=== PATIENT | male | born 1955 | race Caucasian/White ===

== ENCOUNTER 2024-02-01 06:26 | Observation (INO) ==
--- NOTE | 2023-12-27 12:53 | PAT Medication Instructions ---
Medication Instructions Date of Service December 27, 2023 Home Medications Medication Instructions Recorded hydrocodone 5 mg-acetaminophen 325 1 tab PO Q6H PRN pain #14 tabs //22 mg tablet allopurinol 100 mg tablet 100 mg PO QAM atenolol 50 mg tablet 50 mg PO QAM atorvastatin 10 mg tablet 20 mg PO HS hydrochlorothiazide 25 mg tablet 25 mg PO QAM hydrocodone 5 mg-acetaminophen 325 mg tablet 1 tab PO Q6H PRN pain lisinopril 20 mg tablet 20 mg PO QAM omeprazole 40 mg capsule,delayed release 40 mg PO BID oxybutynin chloride 5 mg tablet,extended release 24 hr 5 mg PO QAM oxycodone 5 mg tablet 5 mg PO Q6H PRN Pain, Severe oxycodone-acetaminophen 5 mg-325 mg tablet 1 tab PO Q4H PRN Pain, Severe tamsulosin 0.4 mg capsule 0.4 mg PO QPM coenzyme Q10 200 mg/gram oral powder (H2Q CoQ10) 200 mg PO QAM glucosamine sulfate 2KCl 1,000 mg tablet (Glucosamine Relief) 1,000 mg PO QAM mecobalamin (vitamin B12) 1,000 mcg chewable tablet 1,000 mcg PO QAM multivitamin 1 tab PO QAM potassium citrate 99 mg capsule 99 mg PO QAM turmeric 400 mg capsule 400 mg PO QAM lactobacillus comb no.10 20 billion cell capsule (Probiotic) 20,000 mmu cells PO QAM STOP taking 2 weeks before surgery (or as soon as possible if surgery is within 2 weeks) coenzyme Q10 200 mg/gram oral powder (H2Q CoQ10) 200 mg PO QAM glucosamine sulfate 2KCl 1,000 mg tablet (Glucosamine Relief) 1,000 mg PO QAM turmeric 400 mg capsule 400 mg PO QAM DO NOT take the morning of surgery hydrochlorothiazide 25 mg tablet 25 mg PO QAM lisinopril 20 mg tablet 20 mg PO QAM oxybutynin chloride 5 mg tablet,extended release 24 hr 5 mg PO QAM mecobalamin (vitamin B12) 1,000 mcg chewable tablet 1,000 mcg PO QAM multivitamin 1 tab PO QAM potassium citrate 99 mg capsule 99 mg PO QAM lactobacillus comb no.10 20 billion cell capsule (Probiotic) 20,000 mmu cells PO QAM Take morning of surgery With a small sip of water, OTHERWISE NOTHING TO EAT OR DRINK AFTER MIDNIGHT: allopurinol 100 mg tablet 100 mg PO QAM atenolol 50 mg tablet 50 mg PO QAM hydrocodone 5 mg-acetaminophen 325 mg tablet 1 tab PO Q6H PRN pain (if needed) omeprazole 40 mg capsule,delayed release 40 mg PO BID oxycodone 5 mg tablet 5 mg PO Q6H PRN Pain, Severe (if needed) oxycodone-acetaminophen 5 mg-325 mg tablet 1 tab PO Q4H PRN Pain, Severe (if needed) Take evening before surgery atorvastatin 10 mg tablet 20 mg PO HS hydrocodone 5 mg-acetaminophen 325 mg tablet 1 tab PO Q6H PRN pain (if needed) omeprazole 40 mg capsule,delayed release 40 mg PO BID oxycodone 5 mg tablet 5 mg PO Q6H PRN Pain, Severe (if needed) oxycodone-acetaminophen 5 mg-325 mg tablet 1 tab PO Q4H PRN Pain, Severe (if needed) tamsulosin 0.4 mg capsule 0.4 mg PO QPM Other Notes If you have any questions please call us at [phone] or [phone] or [phone] or [phone]
--- NOTE | 2024-01-07 08:54 | Anesthesiology Consultation ---
Date of Service January 07, 2024 Assessment & Plan (1) Encounter for pre-operative examination: - Case discussed with Dr. Lainez who advised patient is acceptable to proceed at current status. - Outpatient joint assessment: Patient is currently scheduled for inpatient pathway. If re-evaluated and patient/surgeon requests outpatient pathway, patient is acceptable candidate for outpatient joint program from anesthesia standpoint pending surgeon's office assessment of pt motivation/support/completion of same day joint program preop requirements. Chart Review Chart Review: Acceptable Risk for Surgery and Patient seen in Pre Admission Testing Teaching & Discussion Pre-Anesthesia Teaching/Discussion Notes: Instructed NPO after midnight before surgery, except medications with 15 cc of water. Medication instructions provided according to the PAT guidelines. History Surgery Operation Date: 02/01/24 10:00 Proposed Procedures p Right Anterior Total Hip Arthroplasty - Kiran Portillo DO Height/Weight Height: 5 ft 9.5 in Weight: 112.3 kg Allergies Allergy/AdvReac Type Severity Reaction Status Date / Time tramadol Allergy Mild Itching Verified 12/26/23 11:16 aspirin AdvReac Mild Nausea Verified 12/26/23 11:16 penicillin V AdvReac Mild Nausea Verified 12/26/23 11:17 Medications Home Medications Medication Instructions Recorded Confirmed Last Taken allopurinol 100 mg tablet 100 mg PO QAM 11/28/21 12/26/23 11/27/21 atenolol 50 mg tablet 50 mg PO QAM 11/28/21 12/26/23 11/27/21 atorvastatin 10 mg tablet 20 mg PO HS 11/28/21 12/26/23 11/27/21 hydrochlorothiazide 25 mg tablet 25 mg PO QAM 11/28/21 12/26/23 11/27/21 hydrocodone 5 mg-acetaminophen 325 1 tab PO Q6H PRN pain #14 tabs 11/28/21 12/26/23 Unknown mg tablet lisinopril 20 mg tablet 20 mg PO QAM 11/28/21 12/26/23 11/27/21 omeprazole 40 mg capsule,delayed 40 mg PO BID 11/28/21 12/26/23 11/27/21 release oxybutynin chloride 5 mg 5 mg PO QAM 11/28/21 12/26/23 11/27/21 tablet,extended release 24 hr oxycodone 5 mg tablet 5 mg PO Q6H PRN Pain, Severe 11/28/21 12/26/23 Unknown oxycodone-acetaminophen 5 mg-325 1 tab PO Q4H PRN Pain, Severe 11/28/21 12/26/23 Unknown mg tablet tamsulosin 0.4 mg capsule 0.4 mg PO QPM 11/28/21 12/26/23 11/27/21 coenzyme Q10 200 mg/gram oral 200 mg PO QAM 11/21/23 12/26/23 Unknown powder (H2Q CoQ10) glucosamine sulfate 2KCl 1,000 mg 1,000 mg PO QAM 11/21/23 12/26/23 Unknown tablet (Glucosamine Relief) mecobalamin (vitamin B12) 1,000 1,000 mcg PO QAM 11/21/23 12/26/23 Unknown mcg chewable tablet multivitamin 1 tab PO QAM 11/21/23 12/26/23 Unknown potassium citrate 99 mg capsule 99 mg PO QAM 11/21/23 12/26/23 Unknown turmeric 400 mg capsule 400 mg PO QAM 11/21/23 12/26/23 Unknown lactobacillus comb no.10 20 20,000 mmu cells PO QAM 12/26/23 12/26/23 Unknown billion cell capsule (Probiotic) Past Medical History Medical History Barretts esophagus Chronic pain back and right shoulder; denies acute change or worsening GERD (gastroesophageal reflux disease) controlled, stable per pt History of COVID-19 (~2021) x 2 not hospitalized, resolved History of dysphagia denies choking History of esophageal dilatation Hx of cardiac arrhythmia "dropped beats" followed with PCP, had EKG and stress test in 2004, and "nothing to worry about" Hx of colonic polyps Hx of gout Hypercholesteremia Hypertension controlled, stable per pt Incomplete bladder emptying Visual floaters bilateral eyes, follows with [facility] eye Patient denies h/o stroke, seizures, heart attack, heart failure, DM, blood clots/DVTs or blood transfusions. Exercise / Class Metabolic Activity II 4-5 Yardwork/Stairs/Walk up hill (denies chest discomfort or shortness of br eath with one flight of stairs) Past Surgical History Surgical History History of back surgery (~2004) L5-S1 History of hernia surgery (~1988) Hx of colonoscopy with polypectomy Hx of esophagogastroduodenoscopy Hx of wisdom tooth extraction S/P shoulder surgery rt Past Anesthesia History No Hx of Anesthesia Complications and No Family Hx of Anesthesia Complications History of PONV No Hx of PONV and No Hx of Motion Sickness Social History Smoking Status: Never smoker Do You Dip or Chew Tobacco: No Hx Alcohol Use: No Hx Substance Use: No substance use type: does not use Review of Systems Occasional snoring, denies witnessed apneas. Patient denies chest pain, shortness of breath, dyspnea on exertion, fever, chills, cough, wheezing, or palpitations. Physical Exam Vital Signs Vitals BP 129/80 P 61 TEMP 97.8 SP02 95% on RA RESP 18 Physical Patient resting comfortably in chair in no acute distress, alert and oriented, responding appropriately throughout visit Full cervical extension range of motion without pain TMD 3.5 finger breadths Mallampati Score 3 Dentition: one bridge, one crown; denies chipped or loose teeth, or implants Lungs: normal respiratory effort. Good air movement, clear throughout to auscultation, no adventitious breath sounds Cardiac: regular rate and rhythm, no murmurs noted Carotid arteries: negative bruit bilat Lab Results Anesthesia Preop Results Results Anesthesia Widget: WBC 5.21 K/ul (4.8-10.8) 01/07/24 Hgb 13.9 g/dl (14.0-18.0) L 01/07/24 Hct 41.9 % (42.0-52.0) L 01/07/24 Plt 172 K/uL (130-400) 01/07/24 Na 140 mmol/L (136-145) 01/07/24 K 3.9 mmol/L (3.5-5.1) 01/07/24 Cl 103 mmol/L (98-107) 01/07/24 CO2 30 mmol/L (21-32) 01/07/24 BUN 28 mg/dl (6-23) H 01/07/24 Creat 1.11 mg/dl (0.6-1.4) 01/07/24 Glucose Level 126 mg/dl (70-99(Fasting)) H 01/07/24 PT 10.3 Seconds (9.0-12.0) 01/07/24 PTT 28 Seconds (21-31) 01/07/24 INR 0.9 (0.9-1.1) 01/07/24 Blood Type O Positive 01/07/24 Antibody Screen NEGATIVE 01/07/24 Testing Electrocardiogram Date: 01/07/24 NSR, rate 61 bpm Chest X-Ray Date: 01/07/24 No acute cardiopulmonary findings.
--- NOTE | 2024-01-31 12:08 | History & Physical Report ---
Date of Service January 31, 2024 Assessment & Plan (1) Osteoarthritis of right hip: We will proceed with a right total hip arthroplasty. Postoperatively he will be started on aspirin for DVT prophylaxis and kept overnight in the hospital for postop medical management. He plans to use energy physical therapy upon discharge. History of Present Illness Chief Complaint: Osteoarthritis of the right hip. Primary Care Provider: Julien James MD Juan Carlos is a pleasant 68-year-old male who has been dealing with chronic increasing right hip pain. He is a retired [place]. His hip has been getting worse and worse over the years. He did have a spinal surgery done 20 years ago, that was part of a workman's comp injury. He still has a little bit of back pain from that. He has a history of a shoulder arthroscopy done about 2 years ago. He is now dealing with severe right hip pain. He is having trouble ambulating. He is having trouble putting on his shoes. X-rays and clinical examination been diagnostic for advanced osteoarthritis of the right hip. After failing conservative treatment, he has elected proceed with a right total hip arthroplasty. Allergies Allergy/AdvReac Type Severity Reaction Status Date / Time tramadol Allergy Mild Itching Verified 12/26/23 11:16 aspirin AdvReac Mild Nausea Verified 12/26/23 11:16 penicillin V AdvReac Mild Nausea Verified 12/26/23 11:17 Home Medications Medication Instructions Recorded Confirmed Type allopurinol 100 mg tablet 100 mg PO QAM 11/28/21 12/26/23 History atenolol 50 mg tablet 50 mg PO QAM 11/28/21 12/26/23 History atorvastatin 10 mg tablet 20 mg PO HS 11/28/21 12/26/23 History hydrochlorothiazide 25 mg tablet 25 mg PO QAM 11/28/21 12/26/23 History hydrocodone 5 mg-acetaminophen 325 1 tab PO Q6H PRN pain #14 tabs 11/28/21 12/26/23 Rx mg tablet lisinopril 20 mg tablet 20 mg PO QAM 11/28/21 12/26/23 History omeprazole 40 mg capsule,delayed 40 mg PO BID 11/28/21 12/26/23 History release oxybutynin chloride 5 mg 5 mg PO QAM 11/28/21 12/26/23 History tablet,extended release 24 hr oxycodone 5 mg tablet 5 mg PO Q6H PRN Pain, Severe 11/28/21 12/26/23 History oxycodone-acetaminophen 5 mg-325 1 tab PO Q4H PRN Pain, Severe 11/28/21 12/26/23 History mg tablet tamsulosin 0.4 mg capsule 0.4 mg PO QPM 11/28/21 12/26/23 History coenzyme Q10 200 mg/gram oral 200 mg PO QAM 11/21/23 12/26/23 History powder (H2Q CoQ10) glucosamine sulfate 2KCl 1,000 mg 1,000 mg PO QAM 11/21/23 12/26/23 History tablet (Glucosamine Relief) mecobalamin (vitamin B12) 1,000 1,000 mcg PO QAM 11/21/23 12/26/23 History mcg chewable tablet multivitamin 1 tab PO QAM 11/21/23 12/26/23 History potassium citrate 99 mg capsule 99 mg PO QAM 11/21/23 12/26/23 History turmeric 400 mg capsule 400 mg PO QAM 11/21/23 12/26/23 History lactobacillus comb no.10 20 20,000 mmu cells PO QAM 12/26/23 12/26/23 History billion cell capsule (Probiotic) Past Med/Surg History Problem List Osteoarthritis of right hip Medical History Incomplete bladder emptying Hx of cardiac arrhythmia "dropped beats" followed with PCP, had EKG and stress test in 2004, and "nothing to worry about" History of COVID-19 (~2021) x 2 not hospitalized, resolved History of dysphagia denies choking History of esophageal dilatation Barretts esophagus GERD (gastroesophageal reflux disease) controlled, stable per pt Hx of colonic polyps Hx of gout Visual floaters bilateral eyes, follows with [facility] eye Chronic pain back and right shoulder; denies acute change or worsening Hypercholesteremia Hypertension controlled, stable per pt Surgical History Hx of esophagogastroduodenoscopy Hx of colonoscopy with polypectomy Hx of wisdom tooth extraction History of hernia surgery (~1988) History of back surgery (~2004) L5-S1 S/P shoulder surgery rt Social History Smoking Status: Never smoker Second Hand Exposure: No; Do You Dip or Chew Tobacco: No; Tobacco Cessation Education Requested by Patient: No Hx Alcohol Use: No Hx Substance Use: No Preferred Language: Lao Communication Ability: Effective Sales Operations Required: No Beliefs That Will Affect Care: None Current Living Situation: Spouse Other Information That Helps Us Care for You: No Feels Safe at Home: Yes Safety Concerns: Feels Safe At This Time Assistive Devices: None Review of Systems All systems reviewed & are unremarkable except as noted in HPI & below. Physical Exam On physical examination of the right hip, he has decreased range of motion. He has pain with forced internal/external rotation.. Constitutional WD/WN, vitals as above Eyes PERRL, conjunctivae normal, anicteric sclerae ENMT external ear and nose normal, oropharynx normal Neck trachea midline, no thyromegaly Respiratory normal respiratory effort Cardiovascular RRR, no murmur, no edema Gastrointestinal (Abdomen) normal bowel sounds, soft, nontender, no hepatosplenomegaly Psychiatric A+Ox3, euthymic affect Results & Data Results & Data Laboratory Results . Diagnostic Findings X-rays of the right hip show advanced osteoarthritis with joint space narrowing, osteophyte formation, and [id number] articulation. PG Care Time/CCT Total # of Minutes Spent Total Time Spent with Patient: Total time spent is greater than 50% in coordination of care (as documented) at patient's floor/unit and/or counseling patient: Coding Level of Care Code None Diagnoses Osteoarthritis of right hip M16.11
[~2024-02-01 06:26] MED LIST: BUPIVACAINE 0.5 % 5 MG/1 ML PF 10ML VIAL ONE
--- NOTE | 2024-02-01 06:27 | History & Physical Bridge Note ---
Date of Service February 01, 2024 History & Physical Bridge Note I have examined the patient, reviewed the History & Physical and in the interval since the performance of the History & Physical I have noted the following changes of clinical significance: no changes noted
[2024-02-01] MEDS ORDERED: MIDAZOLAM HCL 1 MG/ML 2ML VIAL ONE (07:00)
[2024-02-01] MEDS: LR 500ML BOLUS, THEN 15ML/HR IV SCH (07:14)
[2024-02-01] MEDS: GABAPENTIN 300 MG CAP PO SCH (07:15)
[2024-02-01] MEDS: FAMOTIDINE 20 MG TAB PO SCH (07:15)
[2024-02-01] MEDS: dexAMETHasone**PF** 10 MG/ML VIAL IV SCH (07:15)
[2024-02-01] MEDS: ACETAMINOPHEN 500 MG TAB PO SCH ×2 (07:15→14:00)
[2024-02-01] MEDS: LR 60ML/HR IV SCH (07:26)
[2024-02-01] MEDS: TRANEXAMIC ACID 1,000 MG **IV Pre-op IV SCH (07:51)
[2024-02-01] MEDS ORDERED: fentaNYL citrate PF 100 MCG/2 ML VIAL ONE (07:53)
[2024-02-01] MEDS ORDERED: ONDANSETRON INJ 2 MG/ML 2 ML VIAL ONE (07:53)
[2024-02-01] MEDS: ceFAZolin 2000MG 2,000 MG/15 ML SYR IV SCH ×2 (08:09→15:30)
[2024-02-01] MEDS ORDERED: ePHEDrine sulfate 50 MG/5 ML SYR ONE (08:32)
[2024-02-01] MEDS ORDERED: GLYCOPYRROLATE 0.2 MG/ML VIAL ONE (08:32)
[2024-02-01] MEDS ORDERED: LIDOCAINE 2% 2 ML VIAL/AMP(20MG/ML) INFIL ONE (08:32)
[2024-02-01] MEDS ORDERED: PHENYLEPHRINE 100MCG/ML 10ML SYR IV ONE (08:32)
[2024-02-01] MEDS ORDERED: PROPOFOL IV EMULSION 10 MG/ML 20 ML VIAL IV ONE ×2 (08:32→09:12)
[2024-02-01] MEDS ORDERED: PHENYLEPHRINE HCL 10 MG/ML VIAL ONE (08:46)
[2024-02-01] MEDS: ORTHO JOINT ANESTHETIC ONE (08:50)
[2024-02-01] MEDS: ROPIV 0.5% 246mg, Ketorolac 30mg, EPINEPHrine 0.5mg in NSS INFIL SCH (08:58)
[2024-02-01] MEDS: TRANEXAMIC ACID 1,000 MG **IV Intra-op IV SCH (09:50)
--- NOTE | 2024-02-01 10:08 | Fluoroscopy Report ---
FL hip RT 1V CLINICAL HISTORY: RIGHT ANTERIOR HIPright hip arthroplasty COMPARISON STUDY: 11/21/2023 FLUOROSCOPY TIME: 22.2 seconds FLUOROSCOPY IMAGES: T2 EXPOSURE DOSE: 3.6621 mGy FINDINGS: Right hip arthroplasty demonstrates satisfactory alignment. No acute fracture, dislocation or unexpected opaque foreign body. IMPRESSION: Fluoroscopic assistance as above. ACT 112: Negative or not required by law. Electronically signed by: Cortez Corea M.D. 02/01/2024 10:07 AM
--- NOTE | 2024-02-01 10:58 | Operative Report ---
PG Post Operative Report Pre & Post Diagnosis Operation Date: 02/01/24 08:00 Pre-Op Diagnosis: Degenerative Joint Disease Right Hip Post-Op Diagnosis: Degenerative Joint Disease Right Hip I identified the patient and participated in the time-out.: Yes Procedure Operation Date: 02/01/24 08:00 Actual Procedures p Right Anterior Total Hip Arthroplasty(Right) - Kiran Portillo DO Surgeon Kiran Portillo DO Clinique Counter Manager Kiran Dacosta PA-C Estimated Blood Loss 250 Findings Consistent with Post-Op Diagnosis Specimens Right femoral head Description of Procedure Implants used I used a ZimmerBiomet total hip arthroplasty system with a size 14 Aramis One stem, a 58 mm G7 cup with a 25mm screw, an E1 polyethylene liner, a 40 mm ceramic head with a +6 neck. Juan Carlos arrived at the hospital for the above procedure. He was seen in the preoperative holding area and the operative extremity was identified and signed. He was given a spinal anesthetic, a preoperative antibiotic, and TXA. He was then taken back to the operating room and laid on the table in the supine position. He was given basic sedation. The operative leg was secured to a Puristst leg positioner. The hip was then prepped and draped in sterile fashion. A timeout was done and the patient and the operative extremity was properly identified. An anterior approach was used. Dissection was taken down through the fascia and the tensor muscle belly was retracted laterally and the rectus was retracted medially. The circumflex vessels were identified and ligated. The capsule was then incised and tagged for later repair. The femoral neck was then cut and the femoral head was removed. The acetabulum was exposed. Time was spent doing a complete circumferential labral release. Sequential reaming of the acetabulum up to a size 57 reamer was done. Final reamings were done under fluoroscopy to ensure appropriate version. A Biomet 58 mm G7 cup was then impacted into place. A single 25 mm screw was placed. The E1 polyethylene liner was then snapped into place. Surrounding soft tissues were then injected with 100 cc of an orthopedic pain control cocktail. The proximal femur was then exposed. Sequential broaching up to a size 14 broach was done. Off that broach a size 40 head with a +6 neck was trialed. The hip was reduced and fluoroscopic images showed anatomic alignment of the implants in acceptable length. The broach was removed. The final size 14 Aramis One stem was then impacted into place. A ceramic 40 mm head with a +6 neck was then impacted onto the stem and the hip was reduced. Final fluoroscopic images showed anatomic alignment of the hip. The capsule was then closed with #1 Vicryl suture. A dilute betadyne lavage was then done for 3 minutes. The joint was then irrigated with normal saline solution. The fascia was closed with #1 PDS suture. Skin was closed with 2-0 Vicryl, honey, and a Silverlon dressing. He was then transferred to a hospital bed and taken to the post anesthesia care unit in stable condition. He tolerated the procedure well. Kiran Dacosta PA-C, was present for the entire procedure. He was critical for patient positioning, prepping, draping, retraction exposure, wound closure and application of sterile dressing. I attest to the content of the Intraoperative Record and any orders documented therein. Any exceptions are noted below.
--- NOTE | 2024-02-01 11:13 | Anesthesiology Progress Note ---
Date of Service February 01, 2024 Anesthesia Post Procedure Vital Signs Vital Signs: Temp Pulse Pulse Resp BP Pulse Ox O2 Del Method 02/01/24 11:00 97.5 F L 66 16 128/74 98 Nasal Cannula 02/01/24 10:50 73 18 123/71 96 Nasal Cannula 02/01/24 10:40 74 14 125/71 96 Nasal Cannula 02/01/24 10:30 73 16 106/65 97 Nasal Cannula 02/01/24 10:20 78 12 132/76 89 L Room Air 02/01/24 10:12 97.9 F 82 23 121/75 93 Oxymask 02/01/24 07:27 97.7 F 63 20 150/89 H 97 Room Air O2 Flow Rate 02/01/24 11:00 2 02/01/24 10:50 2 02/01/24 10:40 2 02/01/24 10:30 2 02/01/24 10:20 02/01/24 10:12 4 02/01/24 07:27 Pain Intensity Right Hip: Pain Intensity: 2 Transfer of Care Handoff Completed per policy Notes Mental Status: alert / awake / arousable and participated in evaluation Patient Amnestic to Procedure: Yes Nausea / Vomiting: adequately controlled Pain: adequately controlled Airway Patency, RR, SpO2: stable & adequate BP & HR: stable & adequate Hydration State: stable & adequate Neuraxial Anesthesia: was administered and sensory block is resolving Anesthetic Complications: no major complications apparent and Pt Satisfied with anesthetic care
[2024-02-01] MEDS ORDERED: NALOXONE HCL 0.4 MG/1 ML VIAL/CARP IV PRN (11:38)
[2024-02-01] MEDS ORDERED: MAGNESIUM HYDROXIDE SUSP 30 ML UDC PO PRN (11:38)
[2024-02-01] MEDS ORDERED: ONDANSETRON INJ 2 MG/ML 2 ML VIAL IV PRN (11:38)
[2024-02-01] MEDS ORDERED: bisacodyL 10 MG SUPP PR PRN (11:38)
[2024-02-01] MEDS ORDERED: METOCLOPRAMIDE HCL INJ 5 MG/ML 2 ML VIAL IV PRN (11:38)
[2024-02-01] MEDS: SODIUM CHLORIDE 0.9% 1,000 ML IV SCH (12:05)
--- NOTE | 2024-02-01 12:13 | XRay Report ---
SINGLE VIEW PELVIS; SINGLE VIEW RIGHT HIP CLINICAL HISTORY: Postoperative examination. FINDINGS: An AP portable view of the hips and pelvis with a crosstable lateral portable view of the r ight hip are compared to study dated 11/21/2023. A bipolar right hip arthroplasty is in near-anatomic alignment. A single cortical lag screw transfixes the acetabular cup. No acute fracture is identified . There are expected postoperative changes overlying the right hip including skin clips, subcutaneous gas, a and soft tissue swelling. Fusion hardware is seen at the lumbosacral junction. Moderate osteo arthritic change is noted in the left hip. IMPRESSION: Expected postoperative findings status post right hip arthroplasty. No acute fracture is seen. ACT 112: Negative or not required by law. Electronically signed by: Gaudencio Rocha M.D. 02/01/2024 12:12 PM
[2024-02-01] MEDS: KETOROLAC TROMETHAMINE 15 MG/ML VIAL IV SCH (12:15)
[2024-02-01] MEDS: HYDROmorphone INJ 0.5 MG/0.5 ML SYR IV PRN (12:40)
[2024-02-01] MEDS: oxyCODONE HCL IR 5 MG TAB (IMMEDIATE RELEASE) PO PRN (12:45)
[2024-02-01] MEDS: ASPIRIN 81 MG ECTAB PO SCH (20:24)
[2024-02-01] MEDS: TAMSULOSIN HCL 0.4 MG CAP PO SCH (20:24)
[2024-02-01] MEDS: ATORVASTATIN 20 MG TAB PO SCH (20:24)
[2024-02-01] MEDS: SENNA 8.6 MG TAB PO SCH (20:25)
[2024-02-01] MEDS: DOCUSATE SODIUM 100 MG CAP PO SCH (20:25)
--- OUTSIDE RECORDS SUMMARY | 2024-02-01 22:15 | External Medical Summary | Summary of Care ---
Author Name Unknown Organization [facility] Address [address] [facility] [place] [place] [address] Phone [phone] Care Team Providers Care Immigration Case Worker Name Role Phone Julien James MD Primary Care Provider [phone] Reason for Visit * Reason Comments Acute Pt here today with e arache both ears but right is worse and sore throat. No fever Encounter Details Date Type Department Care Team (Late st Contact Info) Description 01/14/2024 12:00 PM EDT Office Visit [facility] [address] [place] [address] April Tanner MD [address] [place] [address] Chronic sinusitis, unspecified location*; Otalgia of both ears; HTN, goal below 140/90; Chronic kidney disease with symptom management only, stage 3 (moderate) ([facility]); Bilateral hip pain Allergies Active Allergy Reactions Criticality Noted Date Comments Penicillins Other (Please comment) 01/14/2024 Heartburn Tramadol Hcl Itching Low 06/22/2008 documented as of this encounter (statuses as of 01/14/2024) Medications Medication Sig Dispensed Refills Start Date End Date Status oxyCODONE HCl 5 MG Oral Tablet (Oxy IR)Indications:Lum bar degenerative disc disease Take 1 Tablet by mouth every 6 hours as needed for Pain, Severe. 30 Tablet 08/23/2021 Active Furosemide 20 MG Oral TabletIndications: Dependent edema Take 1 by mouth daily as needed for swelling 30 Tablet 11 02/21/2022 Active Atorvastatin Calcium 20 MG Oral Tablet (Lipitor)Indicatio ns:Dyslipidemia, goal LDL below 130 Take 1 Tablet by mouth in the morning. 90 Tablet 3 02/07/2023 Active tiZANidine HCl 2 MG Oral Tablet (Zanaflex)Indicati ons:Cervicalgia Take 1 Tablet by mouth every 6 hours as needed for Muscle spasms. 30 Tablet 02/07/2023 Active Tamsulosin HCl 0.4 MG Oral Capsule (Flomax)Indication s:BPH with obstruction/lower urinary tract symptoms TAKE 1 CAPSULE BY MOUTH EVERY DAY 90 Capsule 3 03/24/2023 Active oxyBUTYnin Chloride ER 15 MG Oral Tablet Extended Release 24 Hour (Ditropan XL) Take 1 Tablet by mouth in the morning. Do not cut, crush or chew. 90 Tablet 3 08/15/2023 Active Atenolol 50 MG Oral Tablet (Tenormin) TAKE 1 TABLET BY MOUTH EVERY DAY 90 Tablet 1 08/28/2023 Active Allopurinol 100 MG Oral Tablet (Zyloprim) TAKE 1 TABLET BY MOUTH EVERY DAY 90 Tablet 1 08/28/2023 Active Omeprazole 40 MG Oral Capsule Delayed Release (PriLOSEC) TAKE 1 CAPSULE BY MOUTH TWICE A DAY 180 Capsule 1 08/28/2023 Active Lisinopril 20 MG Oral Tablet (Prinivil)Indicati ons:HTN, goal below 140/90 TAKE 1 TABLET BY MOUTH EVERY DAY 90 Tablet 1 09/14/2023 Active hydroCHLOROthiazid e 25 MG Oral Tablet (Hydrodiuril)Indic ations:HTN, goal below 140/90 TAKE 1 TABLET BY MOUTH EVERY DAY IN THE MORNING 90 Tablet 1 12/11/2023 Active Fluticasone Propionate 50 MCG/ACT Nasal Suspension (Flonase) Administer 2 Sprays into each nostril in the morning. 16 g 1 01/14/2024 Active Cetirizine HCl 10 MG Oral Tablet (ZyrTEC) Take 1 Tablet by mouth in the morning. 90 Tablet 3 01/14/2024 Active Azithromycin 250 MG Oral Tablet (Zithromax Z-Juan M) Take two tablets by mouth on first day, then 1 tablet daily until gone 6 Tablet 01/14/2024 Active Atorvastatin Calcium 10 MG Oral Tablet (Lipitor)Indicatio ns:Dyslipidemia, goal LDL below 130 TAKE 1 TABLET BY MOUTH EVERY DAY 90 Tablet 1 01/29/2023 01/14/20 24 Discontinu ed(Patient preference /discontin uation) Hydrocortisone Acetate 25 MG Rectal Suppository (Anusol-HC)Indicat ions:Hemorrhoids, external without complications Administer into the rectum 2 times a day in the morning and at bedtime as needed for Hemorrhoids. Up to 2 weeks. 28 Suppository 1 02/07/2023 01/14/20 24 Discontinu ed(Patient preference /discontin uation) documented as of this encounter (statuses as of 01/14/2024) Active Problems Problem Noted Date Diagnosed Date Monoallelic mutation of BRCA2 gene 05/27/2019 Overview: likely pathogenic BRCA2 gene variant (c.425G>T, p.S142I) detected via [email or web address]. Increased risk for Hereditary Breast and Ovarian Cancer Syndrome. BPH with obstruction/lower urinary tract symptom s 11/26/2017 Gastroesophageal reflux disease 05/28/2017 Dyslipidemia, goal LDL below 130 06/05/2012 Paniagua's esophagus 10/06/2005 HTN, goal below 140/90 01/10/2002 documented as of this encounter (statuses as of 01/14/2024) Resolved Problems Problem Noted Date Diagnosed Date Resolved Date Encounter for examination fo r normal comparison and control in clinical research program 05/27/2019 09/13/2020 Overview: Diagnosis changed due to Research Module. Go to Snapshot for study details. MEDICATION USE AGREEMENT 11/23/201612/2018 Overview: Signed 11/23/16 Benign neoplasm of colon 12/05/200709/2017 Overview: hyperplastic and adenomatous; repeat colonoscopyin 3 yrs ADVANCE DIRECTIVE INFORMATION 02/26/2007 11/26/2017 Overview: No, Advance Directive brochure given to patient at prior appointment. Other specific muscle disorders 04/23/2000 05/28/2017 Spasm of muscle 04/23/2000 05/28/2017 Foreign body in nose 01/06/2000 017 Tension headache 05/28/2017 documented as of this encounter (statuses as of 01/14/2024) Immunizations Name Administration Dates Next Due Diptheria/Tetanus (Adult) 08/31/1997 Pneumococcal Conjugate Vacci ne, 20-valent ([id number]) 08/07/2022 Seasonal Influenza, PF, 6 M & above, IM , (FluLaval or Fluzone) 06/02/2019,05/30/2018 06/02/2020 Seasonal Influenza, Split, I IV3, With Preserve, Inj 05/28/2017,07/07/2005,07/09/2003 TDAP (age 10 and older)(Boostrix) 06/30/2014 Varicella Zoster Vaccine (Adult) 12/24/2016 Zoster Vaccine Recombinant (Shingrix) 08/23/2021 ,02/21/2021 documented as of this encounter Social History Tobacco Use Types Packs/Day Years Used Date Smoking Tobacco: Never Passive Smoke Exposure: Past Smokeless Tobacco: Never Tobacco Cessation:Counseling Given: Not Answered Alcohol Use Standard Drinks/Week Comments No 0 (1 standard drink = 0.6 oz pur e alcohol) PHQ-2 Answer Date Recorded PHQ Adult Total Score 0 01/14/2024 Hunger Vital Sign Answer Date Recorded Within the past 12 months, y ou worried that your food would run out before you got the money to buy more. Patient declined Within the past 12 months, t he food you bought just didn't last and you didn't have money to get more. Patient declined Sex and Gender Information Value Date Recorded Sex Assigned at Male 11/29/2018 7:12 AM EDT Gender Identity Male 11/29/2018 7:12 AM EDT Sexual Orientation Straight 11/29/2018 7: 12 AM EDT Job Start Date Occupation Industry Not on file Not on file Not on file documented as of this encounter Last Filed Vital Signs Vital Sign Reading Time Taken Comments Blood Pressure 126/78 01/14/2024 11:53 AM EDT Pulse 61 01/14/2024 11:53 AM EDT Temperature 36.6 C (97.8 F) 01/14/2024 11:53 AM E DT Respiratory Rate 16 01/14/2024 11:53 AM EDT Oxygen Saturation 95% 01/14/2024 11:53 AM EDT Inhaled Oxygen Concentration - - Weight 113.4 kg (250 lb) 01/14/2024 11:53 AM EDT Height - - Body Mass Index 35.87 08/15/2023 9:54 AM EST documented in this encounter Progress Notes * April Tanner MD - 01/14/2024 12:16 PM EDT Subjective Juan Carlos Orellana Sr. is a 68 year old male. Chief Complaint Patient presents with Acute Pt here today with earache both ears but right is worse and sore throat. 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 30 Tablet 0 Furosemide 20 MG Oral Tablet Take 1 by mouth daily as needed for swelling 30 Tablet 11 Atorvastatin Calcium 20 MG Oral Tablet (Lipitor) Take 1 Tablet by mouth in the morning. 90 Tablet 3 tiZANidine HCl 2 MG Oral Tablet (Zanaflex) Take 1 Tablet by mouth every 6 hours as needed for Muscle spasms. 30 Tablet 0 Tamsulosin HCl 0.4 MG Oral Capsule (Flomax) TAKE 1 CAPSULE BY MOUTH EVERY DAY 90 Capsule 3 oxyBUTYnin Chloride ER 15 MG Oral Tablet Extended Release 24 Hour (Ditropan XL) Take 1 Tablet by mouth in the morning. Do not cut, crush or chew. 90 Tablet 3 Atenolol 50 MG Oral Tablet (Tenormin) TAKE 1 TABLET BY MOUTH EVERY DAY 90 Tablet 1 Allopurinol 100 MG Oral Tablet (Zyloprim) TAKE 1 TABLET BY MOUTH EVERY DAY 90 Tablet 1 Omeprazole 40 MG Oral Capsule Delayed Release (PriLOSEC) TAKE 1 CAPSULE BY MOUTH TWICE A DAY 180 Capsule 1 Lisinopril 20 MG Oral Tablet (Prinivil) TAKE 1 TABLET BY MOUTH EVERY DAY 90 Tablet 1 hydroCHLOROthiazide 25 MG Oral Tablet (Hydrodiuril) TAKE 1 TABLET BY MOUTH EVERY DAY IN THE [id number] Tablet 1 Fluticasone Propionate 50 MCG/ACT Nasal Suspension (Flonase) Administer 2 Sprays into each nostril in the morning. 16 g 1 Cetirizine HCl 10 MG Oral Tablet (ZyrTEC) Take 1 Tablet by mouth in the morning. 90 Tablet 3 Azithromycin 250 MG Oral Tablet (Zithromax Z-Juan M) Take two tablets by mouth on first day, then 1 tablet daily until gone 6 Tablet 0 No current facility-administered medications for this visit. Past Medical History: Diagnosis Date PANIAGUA'S ESOPHAGUS Benign neoplasm of colon 12/05/07 hyperplastic and adenomatous; repeat colonoscopyin 3 yrs Displacement of lumbar intervertebral disc without myelopathy Dyslipidemia, goal to be determined GERD (gastroesophageal reflux disease) HTN, goal to be determined Tension headache Past Surgical History: Procedure Laterality Date ARTHOJAY,W/ROTATOR CUFF Right 11/25/2021 ARTHROSCOPY SHOULDER ROTATOR CUFF performed by Mihir Gonzalez DO at OR [facility] COLONOSCOPY W/ LESION REMOVAL, SNARE 12/05/07 repeat 3yrs adenomatous and hyperplastic COLONOSCOPY, DIAGNOSTIC (RECTUM) 09/05/2013 COLONOSCOPY FLEXIBLE PROXIMAL DIAGNOSTIC performed by Nigel Guan MD at ENDOSCOPY [facility] COLONOSCOPY, DIAGNOSTIC (RECTUM) 11/14/2018 normal, repeat 5 yrs/COLONOSCOPY FLEXIBLE PROXIMAL DIAGNOSTIC performed by Ngiel Guan MD at ENDOSCOPY [facility] DENTAL SURGERY PROCEDURE NEC wisdom teeth EGD, FLEXIBLE, DIAGNOSTIC 11/14/2018 inflammation, gastric polyp, hiatal hernia, repeat 3 yrs/ESOPHAGOGASTRODUODENOSCOPY (EGD), FLEXIBLE, TRANSORAL, DIAGNOSTIC performed by Nigel Guan MD at ENDOSCOPY [facility] EGD, FLEXIBLE, REMOVE LESIONS, SNARE METHOD 12/05/07 LUMBAR SPINE FUSION, POST INTERBODY 11/29 L5-S1 - disc removal, fusion - Vidhya REPAIR INITIAL INCISIONAL OR VENTRAL HERNIA; REDUCIBLE 08/27/89 Incisional Hernia Repair,Reducible REPAIR OF NASAL SEPTUM 1999 Nasal Septum Repair UPPER ENDOSCOPY GI REFERRAL OP 09/01 benign stricture - dilated Paniagua's. needs EGDs q 2 yrs Review of patient's allergies indicates: Allergen Reactions Penicillins Other (Please comment) Heartburn Tramadol Hcl Itching Family History Problem Relation Name Age of Onset Heart Disorder Brother [place] - 50's Hypertension Brother Hypertension Mother Diabetes Mother Cancer Mother Thyroid cancer Heart Disorder Father Valve replacement Lung Disorder Father COPD Heart Disorder Brother [place] - 50's Diabetes Grandfather (Maternal) Cancer Sister Lung, Colon Family Status Relation Status Bro (Not Specified) Bro (Not Specified) Mo (Not Specified) Fa (Not Specified) Bro (Not Specified) MGFA (Not Specified) Sis (Not Specified) Social History Socioeconomic History Marital status: Spouse name: etienne Number of children: 4 Years of education: Not on file Highest education level: Not on file Occupational History Occupation: [employer] Tobacco Use Smoking status: Never Passive exposure: Past Smokeless tobacco: Never Vaping Use Vaping status: Not on file Substance and Sexual Activity Alcohol use: No Drug use: No Sexual activity: Yes Partners: Female control/protection: Surgical Other Topics Concern Not on file Social History Narrative Not on file Social Determinants of Health Financial Resource Strain: Not on file Food Insecurity: Patient Declined (01/14/2024) Hunger Vital Sign Worried About Running Out of Food in the Last Year: Patient declined Ran Out of Food in the Last Year: Patient declined Transportation Needs: Not on file Physical Activity: Not on file Stress: Not on file Social Connections: Not on file Intimate Partner Violence: Not on file Housing Stability: Not on file Review of Systems Constitutional: Positive for fatigue. Negative for activity change, appetite change, chills, diaphoresis, fever and unexpected weight change. HENT: Positive for congestion, ear pain, postnasal drip, sinus pressure, sore throat and tinnitus. Negative for facial swelling, hearing loss, rhinorrhea, sinus pain and sneezing. Respiratory: Positive for cough (midl from drainage). Negative for chest tightness, shortness of breath and wheezing. Cardiovascular: Negative. Negative for chest pain, palpitations and leg swelling. Gastrointestinal: Negative for abdominal distention and abdominal pain. Musculoskeletal: Positive for arthralgias (hips) and gait problem. Allergic/Immunologic: Positive for environmental allergies. Neurological: Positive for weakness (legs due to hip pain). Negative for dizziness and light-headedness. Psychiatric/Behavioral: Positive for sleep disturbance. Negative for agitation and behavioral problems. Objective BP 126/78 | Pulse 61 | Temp 36.6 C (97.8 F) (Infrared ) | Resp 16 | Wt 113.4 kg (250 lb) | CuO915% | BMI 35.87 kg/m | BSA 2.37 m Physical Exam Constitutional: General: He is not in acute distress. Appearance: Normal appearance. He is obese. He is not ill-appearing, toxic- appearing or diaphoretic. HENT: Head: Normocephalic and atraumatic. Ears: Comments: Fluid bulging TMs Nose: Congestion present. Eyes: Extraocular Movements: Extraocular movements intact. Cardiovascular: Rate and Rhythm: Normal rate and regular rhythm. Pulses: Normal pulses. Heart sounds: Normal heart sounds. No murmur heard. Pulmonary: Effort: No respiratory distress. Breath sounds: Normal breath sounds. No stridor. No wheezing, rhonchi or rales. Chest: Chest wall: No tenderness. Abdominal: Palpations: Abdomen is soft. Musculoskeletal: General: Tenderness present. Right lower leg: No edema. Left lower leg: No edema. Neurological: General: No focal deficit present. Mental Status: He is alert and oriented to person, place, and time. Psychiatric: Behavior: Behavior normal. ASSESSMENT/PLAN: Chronic sinusitis, unspecified location (Primary) Otalgia of both ears HTN, goal below 140/90 - ALBUMIN / CREATININE RATIO, URINE; Future; Expected date: 01/14/2024 - ALBUMIN / CREATININE RATIO, URINE Chronic kidney disease with symptom management only, stage 3 (moderate) (HCC) Bilateral hip pain Other orders - Fluticasone Propionate 50 MCG/ACT Nasal Suspension (Flonase); Administer 2 Sprays into each nostril in the morning. - Cetirizine HCl 10 MG Oral Tablet (ZyrTEC); Take 1 Tablet by mouth in the morning. - Azithromycin 250 MG Oral Tablet (Zithromax Z-Juna M); Take two tablets by mouth on first day, then 1tablet daily until gone Take meds April Tanner MD * Kimi Peter LPN - 01/14/2024 11:56 AM EDT Urine albumin/creatinine ratio ordered today. Provider aware. documented in this encounter Nursing Notes * Kimi Petre LPN - 01/14/2024 11:49 AM EDT Chief Complaint Patient presents with Acute Pt here today with earache both ears but right is worse and sore throat. No fever documented in this encounter Plan of Treatment Upcoming Encounters Date Type Department Care Team (Late st Contact Info) Description 02/26/2024 2:40 PM EDT Office Visit [facility] [address] [place] [id number] Julien James MD [address] [place] [address] 09/16/2024 2:20 PM EST [facility] [address] [place] [address] Linsey Mcdowell, PA-Cailin [address] [place] [address] THIAGO Jones [id number] Pending Results Name Type Priority Associated Diagnoses Date /Time ALBUMIN / CREATININE RATIO, URINE Lab Routine HTN, goal below 140/90 01/14/2024 12:14 PM EDT Scheduled Orders Name Type Priority Associated Diagnoses Orde r Schedule ALBUMIN / CREATININE RATIO, URINE Lab Routine HTN, goal below 140/90 Expected: 01/14/2024, Expires: 01/13/2025 Scheduled Procedures Name Priority Associated Diagnoses Date/Ti me ESOPHAGOGASTRODUODENOSCOPY ( EGD), FLEXIBLE, TRANSORAL, DIAGNOSTIC Recall Paniagua's esophagus COLONOSCOPY FLEXIBLE PROXIMAL DIAGNOSTIC Recall History of colon polyps Health Maintenance Due Date Last Done Comments Albumin/Creatinine Ratio 11/06/1973 Cologuard 11/06/2000 Fecal Occult Blood Test 11/06/2000 Sigmoidoscopy 11/06/2000 Paniagua's Esophagus Surveilance 11/14/2021 11/14/2018, 11/14/2018, 09/05/2013, Additional history exists COVID-19 Vaccine ( season) 2023 Colonoscopy 11/15/2023 11/14/2018, 10/26, 09/05/2013, Additional history exists Colorectal Cancer Screening 11/15/2023 GFR 02/02/2024 02/01/2023, 01/26, 01/12/2022, Additional history exists Influenza Vaccine (FLU shot) (Season Ended) 2024 06/02/2019, 05/30/2018, 05/28/2017, Additional history exists DTaP,Tdap,and Td Vaccines (2 - Td or Tdap) 06/30/2024 06/30/2014, 08/31/1997 Depression Screening 01/13/2025 01/14/2024 Diabetes Screening 02/01/2026 02/01/2023, 0 02/22/2022, 01/12/2022, Additional history exists Lipid Panel 02/02/2028 02/01/2023, 01/26, 02/21/2021, Additional history exists RETIRED - COLONOSCOPY-EVERY 5 YRS AGES 18-100 Discontinued 11/14/2018, 11/14/2018, 09/05/2013, Additional history exists Zoster Vaccines Completed 08/23/2021, 01/26, 12/24/2016 Pneumococcal Vaccine: 65+ Years Completed 08/07/2022 GARDASIL-HPV IMMUNIZATION SERIES Aged Out No longer eligible based on patient's age to complete this topic Hepatitis B Aged Out No longer eligi ble based on patient's age to complete this topic MENINGOCOCCAL (MENACTRA/MENVEO) Aged Out No longer eligible based on patient's age to complete this topic documented as of this encounter Medical Devices Implanted Type Area Senior Clinical Data Analyst Device Identifier Shelf Expiration Date Model / Serial / Lot Biocomposite Swivelock C Suture [place] Implanted:Qty: 1 on 11/25/2021 by Mihir Gonzalez DO at OR [facility] Right: Shoulder [employer] 05/26/2025 [id number] / / [id number] Description:with Closed PEEK Eyelet and FiberTape Loop Biocomposite Knotless Swivelock [place] Implanted:Qty: 2 on 11/25/2021 by Mihir Gonzalez DO at OR [facility] Right: Shoulder [employer] 10/24/2025 [id number] / / [id number] Description:with Blue #2 Sut ure documented as of this encounter Visit Diagnoses Diagnosis Chronic sinusitis, unspecified location- Primary Otalgia of both ears Otalgia, unspecified HTN, goal below 140/90 Unspecified essential hypertension Chronic kidney disease with symptom management only, stage 3 (moderate) (HCC) Bilateral hip pain Pain in joint, pelvic region and thigh documented in this encounter Care Teams Immigration Case Worker Relationship Specialty Start Date End Date Julien James MD [address] [place] [address] PCP - General 05/27/00 documented as of this encounter"
--- OUTSIDE RECORDS SUMMARY | 2024-02-01 22:16 | External Medical Summary | Summary of Care ---
Author Name Unknown Organization [facility] Address [address] [facility] [place] [address] Phone [phone] Care Team Providers Care [employer] Name Role Phone Julien James MD Primary Care Provider [phone] Reason for Visit * Reason Comments Acute Pt here today with e arache both ears but right is worse and sore throat. No fever Encounter Details Date Type Department Care Team (Late st Contact Info) Description 01/14/2024 12:00 PM EDT Office Visit [facility] [address] [place] [address] April Tanner MD [address] [place] [address] Chronic sinusitis, unspecified location*; Otalgia of both ears; HTN, goal below 140/90; Chronic kidney disease with symptom management only, stage 3 (moderate) ([facility]); Bilateral hip pain Allergies Active Allergy [...] BRCA2 gene variant (c.425G>T, p.S142I) detected via Clean PET. Increased risk for Hereditary Breast and Ovarian [...] 01/14/2024) Immunizations Name Administration Dates Next Due Pneumococcal Conjugate Vacci ne, 20-valent ([id number]) 08/07/2022 Seasonal Influenza, PF, 6 M & above, IM , (FluLaval or Fluzone) 06/02/2019,05/30/2018 06/02/2020 Seasonal Influenza, Split, IIV3, With Preserve, Inj 05/28/2017 TDAP (age 10 and older)(Boostrix) 06/30/2014 Varicella [...] Date Recorded PHQ Adult Total Score 0 02/07/2023 Hunger Vital Sign Answer Date Recorded Worried About Running Out of Food in the Last Ye ar Never true 11/24/2020 Ran Out of Food in the Last Year Never true 11/24/2020 Sex and Gender Information Value Date Recorded [...] taking meds Recently had blood tests at [facility], will get rt hip op in [...] TABLET BY MOUTH EVERY DAY IN THE [id number] Tablet 1 Fluticasone Propionate 50 MCG/ACT Nasal [...] headache Past Surgical History: Procedure Laterality Date ARTHO,SHOUL,W/ROTATOR CUFF Right 11/25/2021 ARTHROSCOPY SHOULDER ROTATOR CUFF performed by Mihir Gonzalez DO at OR [facility] COLONOSCOPY W/ LESION REMOVAL, SNARE 12/05/07 repeat 3yrs adenomatous and hyperplastic COLONOSCOPY, DIAGNOSTIC (RECTUM) 09/05/2013 COLONOSCOPY FLEXIBLE PROXIMAL DIAGNOSTIC performed by Nigel Guan MD at ENDOSCOPY [facility] COLONOSCOPY, DIAGNOSTIC (RECTUM) 11/14/2018 normal, repeat 5 yrs/COLONOSCOPY FLEXIBLE PROXIMAL DIAGNOSTIC performed by Nigel Guan MD at ENDOSCOPY [facility] DENTAL SURGERY PROCEDURE NEC wisdom teeth EGD, FLEXIBLE, DIAGNOSTIC 11/14/2018 inflammation, gastric polyp, hiatal hernia, repeat 3 yrs/ESOPHAGOGASTRODUODENOSCOPY (EGD), FLEXIBLE, TRANSORAL, DIAGNOSTIC performed by Nigel Guan MD at ENDOSCOPY [facility] EGD, FLEXIBLE, REMOVE LESIONS, SNARE METHOD 12/05/07 [...] Name Age of Onset Heart Disorder Brother [place] - 50's Hypertension Brother Hypertension Mother Diabetes Mother Cancer Mother Thyroid cancer Heart Disorder Father Valve replacement Lung Disorder Father COPD Heart Disorder Brother SD - 50's Diabetes Grandfather (Maternal) Cancer Sister Lung, Colon Family Status Relation Status Bro (Not Specified) Bro (Not Specified) Mo (Not Specified) Fa (Not Specified) Bro (Not Specified) MGFA (Not Specified) Sis (Not Specified) Social History Socioeconomic History Marital status: Spouse name: etienne Number of children: 4 Years of education: Not on file Highest education level: Not on file Occupational History Occupation: [employer] Tobacco Use Smoking status: Never Passive exposure: [...] | Wt 113.4 kg (250 lb) | [id number]% | BMI 35.87 kg/m | BSA 2.37 [...] - Azithromycin 250 MG Oral Tablet (Zithromax Z-Juan M); Take two tablets by mouth on first day, then 1tablet daily until gone Take meds April Tanner MD * Kimi Peter LPN - 01/14/2024 11:56 AM EDT Urine albumin/creatinine ratio ordered today. Provider aware. documented in this encounter Nursing Notes * Kimi Peter LPN - 01/14/2024 11:49 AM EDT Chief Complaint Patient presents with Acute Pt here today with earache both ears but right is worse and sore throat. No fever documented in this encounter Plan of Treatment Upcoming Encounters Date Type Department Care Team (Late st Contact Info) Description 02/26/2024 2:40 PM EDT Office Visit [facility] [place] [address] [facility], [place] [id number] Julien James MD [address] [place] [address] 09/16/2024 2:20 PM EST Office Visit Dermatology, [place] [address], [place] [address] Linsey Mcdowell, PA-C [address] [place] [address] [place] [address] Scheduled Orders Name Type Priority Associated Diagnoses [...] this encounter Medical Devices Implanted Type Area Industrial Chemist Device Identifier Shelf Expiration Date Model / Serial / Lot Biocomposite Swivelock C Suture Viola Implanted:Qty: 1 on 11/25/2021 by Mihir Gonzalez DO at OR [facility] Right: Shoulder [employer] 05/26/2025 [id number] / / [id number] Description:with Closed PEEK Eyelet and FiberTape Loop Biocomposite Knotless Swivelock Viola Implanted:Qty: 2 on 11/25/2021 by Mihir Gonzalez DO at OR [facility] Right: Shoulder [employer] 10/24/2025 [id number] C / / [id number] Description:with Blue #2 Sut ure documented as of this encounter Visit Diagnoses Diagnosis Chronic sinusitis, unspecified location- Primary Otalgia of both ears Otalgia, unspecified HTN, goal below 140/90 Unspecified essential hypertension Chronic kidney disease with symptom management only, stage 3 (moderate) (HCC) Bilateral hip pain Pain in joint, pelvic region and thigh documented in this encounter Care Teams [employer] Relationship Specialty Start Date End Date Julien James MD [address] [place] [address] PCP - General 05/27/00 documented as of this encounter"
--- OUTSIDE RECORDS SUMMARY | 2024-02-01 22:16 | External Medical Summary ---
Author Name Unknown Address Unknown Organization K01:[facility] - [address] [place] [id number] Laboratory Report Ordering Provider Test Date Status JEANNE NASCIMENTO 01/14/2024 12:14:14 Final Normal: <30 mg/g creatinine< br/>High: 30-300 mg/g creatinine
Very High: >300 mg/g creatinine
Nephrotic: >2200 mg/g creatinine Observation Date Value Abnormality Reference (Units ) Status Albumin, Urine 01/14/2024 12:14:14 <1.20 (mg/dL) Final Creatinine, Urine 01/14/2024 12:14:14 98 (mg/dL) Final Albumin/Creatinine [Mass Ratio] in Urine 01/14/2024 12:14:14 <12 <30 (mg/g Creat) Final Performing Location [facility] - [address] [place] [address]
--- NOTE | 2024-02-02 06:59 | Orthopedic Progress Note ---
Date of Service February 02, 2024 Assessment & Plan (1) Status post right hip replacement: Overall he is doing very well. Is not having much pain in the right hip. He will be seen by physical therapy today for ambulation and range of motion exercises. He is on aspirin for DVT prophylaxis. He can be discharged home later today. He will follow-up with orthopedics in 2 weeks. Subjective Juan Carlos was seen and examined at bedside this morning. Overall he is doing very well. Is not having much pain in the right hip. He has been up and ambulating to the bathroom. He has no complaints.. Review of Systems All systems reviewed & are unremarkable except as noted in HPI & below. Physical Exam On physical examination the right hip, the dressing is clean and dry. His leg is out full extension. He has active dorsiflexion plantarflexion of his right ankle.. Results & Data Results & Data Laboratory Results . Diagnostic Findings Postoperative x-rays of the right hip show the prosthesis to be in anatomic ali gnment without any evidence of fracture complication, or loosening.. PG Care Time/CCT Total # of Minutes Spent Total Time Spent with Patient: Total time spent is greater than 50% in coordination of care (as documented) at patient's floor/unit and/or counseling patient: Coding Level of Care Code 88001 Post Operative Follow-Up Diagnoses Status post right hip replacement Z96.641
--- NOTE | 2024-02-02 07:00 | Discharge Summary ---
Date of Service February 02, 2024 Admission HPI (Per Admitting) Juan Carlos is a pleasant 68-year-old male who has been dealing with chronic increasing right hip pain. He is a retired [place]. His hip has been getting worse and worse over the years. He did have a spinal surgery done 20 years ago, that was part of a workman's comp injury. He still has a little bit of back pain from that. He has a history of a shoulder arthroscopy done about 2 years ago. He is now dealing with severe right hip pain. He is having trouble ambulating. He is having trouble putting on his shoes. X-rays and clinical examination been diagnostic for advanced osteoarthritis of the right hip. After failing conservative treatment, he has elected proceed with a right total hip arthroplasty. Admission Exam (Per Admitting) On physical examination of the right hip, he has decreased range of motion. He has pain with forced internal/external rotation.. Principal Diagnosis Same as "Discharge Diagnosis" noted below under Discharge Instructions. Discharge Exam On physical examination the right hip, the dressing is clean and dry. His leg is out full extension. He has active dorsiflexion plantarflexion of his right ankle.. Discharge Data Procedures Performed Operation Date: 02/01/24 08:00 Actual Procedures p Right Anterior Total Hip Arthroplasty(Right) - Kiran Portillo DO Ordered Studies 02/01/24 08:00 FL hip RT 1V Routine Hospital Course (1) Status post right hip replacement: On February 01, 2024 Juan Carlos arrived at [facility] and underwent a right hip replacement without complication. He had a spinal anesthetic. Postoperatively he was started on aspirin for DVT prophylaxis and transferred to the general orthopedic floors. His hospital course was uneventful. On postop day #1, his vital signs were stable and his pain was well-controlled. He was able to participate well with physical therapy doing ambulation and range of motion exercises. He was then discharged home. He will follow-up with orthopedics in 2 weeks. PG Care Time/CCT Total # of Minutes Spent Total Time Spent with Patient: Total time spent is greater than 50% in coordination of care (as documented) at patient's floor/unit and/or counseling patient: Discharge Plan Discharge Items Patient Disposition: Home - Self-Care Reason For Visit: Degenerative Joint Disease Right Hip Discharge Diagnosis: Right hip replacement Activity: As commented below Non-emergency contact: Surgeon Call non-emergency contact if: your wound has increased redness and your wound has increased drainage Follow-up/Referrals: Julien James MD [Primary Care Provider] - Diet: Regular Addtl Attending Provider Instructions: Activity and Therapy Recommendations: * If you are using [facility] then therapy will be provided at your home until they feel you have accomplished all of your goals. * If you are using [facility] then Physical Therapy will be provided until they feel you are ready to start Outpatient Physical Therapy. * If you are not using home therapy then Outpatient Physical Therapy should start about 3-5 days from your day of surgery. Therapy will last about 6-10 weeks * You were shown a series of exercises in the hospital. Do these exercises three times each day including the exercises you were shown in physical therapy. * Get up and walk several times each day.~ For the first four weeks, try not to stand or walk for more than one hour at a time. If you do stand or walk for more than one hour, you will not hurt anything, but your leg will likely swell.~~ * As you feel comfortable, you may change from the walker or crutches to a cane and~then to independent walking. Medications: * Narcotic You will likely be sent home from the hospital with a prescription for the narcotic pain medication that worked best throughout your stay. * Cefadroxil -take the antibiotic twice a day for 10 days to help prevent infection. * Aspirin Most patients will be required to take Aspirin 81mg twice a day for 6 weeks after surgery. This is obtained [id number] and a prescription is not necessary. * Other medications may be prescribed for specific circumstances. If you have any questions, please call the office at . * Resume previous home medications unless otherwise instructed TEDs/Elastic Stockings: The white elastic stockings help limit swelling and prevent blood clots from forming in your legs. The more you wear them, the more they work. Wear them for six weeks. Dressing Care: Leave the Silverlon dressing in place for 7 days. After 7 days you may remove the dressing. If the incision is not draining then you may leave the honey open to air. If there is a little bit of drainage or if the honey are getting stuck on your clothing then cover the incision with a dry dressing. The honey will be removed at your 2 week follow-up appointment. Showering: You may shower with the Silverlon dressing in place. Do not let the shower spray hit the dressing directly. Pat the Silverlon dressing dry. If the dressing becomes wet underneath, then simply remove the dressing. Keep the incision dry until you are 7 days out from the day of surgery. After 7 days you may remove the Silverlon dressing and shower with the honey exposed. Let soapy water run over the honey and pat them dry. Do not scrub or soak the incision. Things To Watch For: * Drainage from the incision site that occurs more than one week after your surgery. * Increased redness at the incision site. * Fever above 102 degrees Fahrenheit. * Unusual chest pain or shortness of breath. * Call [facility] at with any of the above problems Follow-Up Visit: Follow-up with Dr. Portillo's PA (Kiran Dacosta) 2-3 weeks after your day of surgery. He will remove your honey and answer any questions. If you have any additional questions or concerns, Dr Portillo is usually in the office at the same time and will be available An appointment was probably scheduled when you signed-up for surgery in the office. If you have any questions call Office Instructions: More detailed instructions as well as Frequently Asked Questions were provided in a folder by our office when you signed-up for surgery. Please review these instructions when you get home. If you have any further questions or concerns, please feel free to call the office at [phone] Pending Studies at Discharge: No Stand-Alone Forms: My [facility], Smoking Cessation Medications and DC Order Prescriptions: New cefadroxil 500 mg capsule 500 mg PO BID 10 Days Qty: 20 0RF aspirin 81 mg Tablet,Delayed Release (Dr/Ec) 81 mg PO BID 42 Days Qty: 0 0RF Continued multivitamin Tablet 1 tab PO QAM turmeric 400 mg capsule 400 mg PO QAM H2Q CoQ10 200 mg/gram powder 200 mg PO QAM potassium citrate 99 mg capsule 99 mg PO QAM mecobalamin (vitamin B12) 1,000 mcg tablet,chewable 1,000 mcg PO QAM glucosamine sulfate 2KCl [Glucosamine Relief] 1,000 mg tablet 1,000 mg PO QAM Rx Instructions: administer with meals atorvastatin 10 mg tablet 20 mg PO HS lisinopril 20 mg tablet 20 mg PO QAM allopurinol 100 mg tablet 100 mg PO QAM omeprazole 40 mg capsule,delayed release(DR/EC) 40 mg PO BID tamsulosin 0.4 mg capsule 0.4 mg PO QPM oxybutynin chloride 5 mg tablet extended release 24 hr 5 mg PO QAM hydrochlorothiazide 25 mg tablet 25 mg PO QAM atenolol 50 mg tablet 50 mg PO QAM Probiotic 20 billion cell Capsule 20,000 mmu cells PO QAM Rx Instructions: administer with a meal oxycodone 5 mg tablet 5 mg PO Q6H PRN (Reason: Pain, Severe) Qty: 30 0RF Discontinued oxycodone-acetaminophen 5-325 mg tablet 1 tab PO Q4H PRN (Reason: Pain, Severe) hydrocodone-acetaminophen 5-325 mg tablet 1 tab PO Q6H PRN (Reason: pain) Qty: 14 0RF Discharge Orders: Discharge Order (Routine); Ordered 02/02/24 Ordered By: Kiran Portillo Admission Data Admit Date/Time: 02/01/24 10:57 Attending Provider: Kiran Portillo Admit Provider: Kiran Portillo Primary Care Provider: Julien James
[2024-02-02] MEDS: hydroCHLOROthiazide 25 MG TAB PO SCH (07:29)
[2024-02-02] MEDS: ATENOLOL 50 MG TABLET PO SCH (07:29)
[2024-02-02] MEDS: dexAMETHasone 4 MG TAB PO SCH (07:29)
[2024-02-02] MEDS: allopurinoL 100 MG TAB PO SCH (07:29)
[2024-02-02] MEDS: ADVANCED PROBIOTIC 625 MG CAPSULE PO SCH (07:30)
[2024-02-02] MEDS: MULTIVITAMIN TAB PO SCH (07:30)
[2024-02-02] MEDS: OXYBUTYNIN CHLORIDE XL 5 MG TABCR PO SCH (07:30)
[2024-02-02] MEDS: lisinopril 20 MG TAB PO SCH (07:30)
== END 2024-02-02 10:49 | disposition home or self-care (01) ==
LOC: 3E 06:26 → ASU 06:26

== ENCOUNTER 2024-07-11 06:57 | Observation (INO) ==
--- NOTE | 2024-07-03 14:36 | Anesthesiology Consultation ---
Date of Service July 03, 2024 Assessment & Plan (1) Encounter for pre-operative examination: Chart Review Chart Review: Acceptable Risk for Surgery and Patient NOT seen in Pre Admission Testing Pt currently scheduled as 23 hours observation. If surgeon decides to change patient to Same Day Joint, patient would be acceptable risk for FRANCESCO, pending patient is motivated, has good support and surgeon's office completes Same Day Joint Program preop requirements. -Infectious Disease screening: Per PAT nursing assessment on 07/03/24. No known infectious disease contacts in past 10 days or current infectious disease sy mptoms. No recent travel outside the country. Right anterior FRANCESCO 02/01/24= Done under SAB at L3-4 with 1 attempt History Surgery Operation Date: 07/11/24 11:00 Proposed Procedures p Left Total Hip Arthroplasty Anterior - Kiran Portillo DO Height/Weight Height: 5 ft 9.5 in Weight: 113.398 kg Allergies Allergy/AdvReac Type Severity Reaction Status Date / Time tramadol Allergy Mild Itching Verified 07/03/24 14:11 adhesive AdvReac Intermediate Skin Tear Verified 07/03/24 14:11 aspirin AdvReac Intermediate Nausea Verified 07/03/24 14:11 penicillin V AdvReac Intermediate Nausea Verified 07/03/24 14:11 Medications Home Medications Medication Instructions Recorded Confirmed Last Taken allopurinol 100 mg tablet 100 mg PO QAM 11/28/21 07/03/24 01/31/24 05:00 atenolol 50 mg tablet 50 mg PO QAM 11/28/21 07/03/24 01/31/24 05:00 hydrochlorothiazide 25 mg tablet 25 mg PO QAM 11/28/21 07/03/24 01/31/24 08:00 lisinopril 20 mg tablet 20 mg PO QAM 11/28/21 07/03/24 01/31/24 08:00 omeprazole 40 mg capsule,delayed 40 mg PO BID 11/28/21 07/03/24 01/31/24 05:00 release tamsulosin 0.4 mg capsule (Flomax) 0.4 mg PO QPM 11/28/21 07/03/24 01/31/24 23:00 coenzyme Q10 200 mg/gram oral 200 mg PO QAM 11/21/23 07/03/24 01/17/24 08:00 powder (H2Q CoQ10) glucosamine sulfate 2KCl 1,000 mg 1,000 mg PO QAM 11/21/23 07/03/24 01/17/24 08:00 tablet (Glucosamine Relief) mecobalamin (vitamin B12) 1,000 1,000 mcg PO QAM 11/21/23 07/03/24 01/17/24 08:00 mcg chewable tablet multivitamin 1 tab PO QAM 11/21/23 07/03/24 01/17/24 08:00 potassium citrate 99 mg capsule 99 mg PO QAM 11/21/23 07/03/24 01/17/24 08:00 turmeric 400 mg capsule 400 mg PO QAM 11/21/23 07/03/24 Unknown lactobacillus comb no.10 20 20,000 mmu cells PO QAM 12/26/23 07/03/24 01/17/24 08:00 billion cell capsule (Probiotic) oxycodone 5 mg tablet 5 mg PO Q6H PRN Pain, Severe #30 02/02/24 07/03/24 Unknown tabs hydromorphone 2 mg tablet 2 mg PO Q6H PRN pain #30 tabs 03/19/24 07/03/24 Unknown atorvastatin 20 mg tablet 20 mg PO HS 07/03/24 07/03/24 Unknown oxybutynin chloride 15 mg 15 mg PO QAM 07/03/24 07/03/24 Unknown tablet,extended release 24 hr Past Medical History Medical History Barretts esophagus Chronic pain back and right shoulder; denies acute change or worsening GERD (gastroesophageal reflux disease) controlled, stable per pt History of COVID-19 (~2021) x 2 not hospitalized, resolved History of dysphagia denies choking Hx of cardiac arrhythmia "dropped beats" followed with PCP, had EKG and stress test in 2004, and "nothing to worry about" Hx of gout Hypercholesteremia Hypertension controlled, stable per pt Incomplete bladder emptying Osteoarthritis of left hip Visual floaters bilateral eyes, follows with [facility] eye Past Surgical History Surgical History History of back surgery (~2004) L5-S1 History of esophageal dilatation History of hernia surgery (~1988) History of total right hip arthroplasty 01/2024 Hx of colonoscopy with polypectomy Hx of esophagogastroduodenoscopy Hx of wisdom tooth extraction S/P shoulder surgery rt Social History Smoking Status: Never smoker Do You Dip or Chew Tobacco: No Hx Alcohol Use: No Hx Substance Use: No substance use type: does not use Lab Results Anesthesia Preop Results Results Anesthesia Widget: WBC 5.44 K/ul (4.8-10.8) 06/24/24 Hgb 13.9 g/dl (14.0-18.0) L 06/24/24 Hct 42.7 % (42.0-52.0) 06/24/24 Plt 169 K/uL (130-400) 06/24/24 Na 144 mmol/L (136-145) 06/24/24 K 3.8 mmol/L (3.5-5.1) 06/24/24 Cl 105 mmol/L (98-107) 06/24/24 CO2 33 mmol/L (21-32) H 06/24/24 BUN 24 mg/dl (6-23) H 06/24/24 Creat 1.17 mg/dl (0.6-1.4) 06/24/24 Glucose Level 118 mg/dl (70-99(Fasting)) H 06/24/24 PT 10.2 Seconds (9.0-12.0) 06/24/24 PTT 26 Seconds (21-31) 06/24/24 INR 0.9 (0.9-1.1) 06/24/24 Blood Type O Positive 06/24/24 Antibody Screen NEGATIVE 06/24/24 Testing Electrocardiogram Date: 01/07/24 NSR, rate 61 bpm Chest X-Ray Date: 01/07/24 No acute cardiopulmonary findings.
--- NOTE | 2024-07-10 06:55 | History & Physical Report ---
Date of Service July 10, 2024 Assessment & Plan (1) Osteoarthritis of left hip: We will proceed with a left anterior total of arthroplasty. Postoperatively he will be started on aspirin for DVT prophylaxis and kept overnight in the hospital for postop medical management. He plans to use [facility] upon discharge. History of Present Illness Chief Complaint: Osteoarthritis of the left hip. Primary Care Provider: Julien James MD Juan Carlos is a pleasant 68-year-old male who has been ill with chronic increasing left hip and groin pain. X-rays and clinical examination were diagnostic for advanced arthritis of the left hip. After failed conservative treatment, he has elected proceed with a left anterior total of arthroplasty.. Allergies Allergy/AdvReac Type Severity Reaction Status Date / Time tramadol Allergy Mild Itching Verified 07/03/24 14:11 adhesive AdvReac Intermediate Skin Tear Verified 07/03/24 14:11 aspirin AdvReac Intermediate Nausea Verified 07/03/24 14:11 penicillin V AdvReac Intermediate Nausea Verified 07/03/24 14:11 Home Medications Medication Instructions Recorded Confirmed Type allopurinol 100 mg tablet 100 mg PO QAM 11/28/21 07/03/24 History atenolol 50 mg tablet 50 mg PO QAM 11/28/21 07/03/24 History hydrochlorothiazide 25 mg tablet 25 mg PO QAM 11/28/21 07/03/24 History lisinopril 20 mg tablet 20 mg PO QAM 11/28/21 07/03/24 History omeprazole 40 mg capsule,delayed 40 mg PO BID 11/28/21 07/03/24 History release tamsulosin 0.4 mg capsule (Flomax) 0.4 mg PO QPM 11/28/21 07/03/24 History coenzyme Q10 200 mg/gram oral 200 mg PO QAM 11/21/23 07/03/24 History powder (H2Q CoQ10) glucosamine sulfate 2KCl 1,000 mg 1,000 mg PO QAM 11/21/23 07/03/24 History tablet (Glucosamine Relief) mecobalamin (vitamin B12) 1,000 1,000 mcg PO QAM 11/21/23 07/03/24 History mcg chewable tablet multivitamin 1 tab PO QAM 11/21/23 07/03/24 History potassium citrate 99 mg capsule 99 mg PO QAM 11/21/23 07/03/24 History turmeric 400 mg capsule 400 mg PO QAM 11/21/23 07/03/24 History lactobacillus comb no.10 20 20,000 mmu cells PO QAM 12/26/23 07/03/24 History billion cell capsule (Probiotic) oxycodone 5 mg tablet 5 mg PO Q6H PRN Pain, Severe #30 02/02/24 07/03/24 Rx tabs hydromorphone 2 mg tablet 2 mg PO Q6H PRN pain #30 tabs 03/19/24 07/03/24 Rx atorvastatin 20 mg tablet 20 mg PO HS 07/03/24 07/03/24 History oxybutynin chloride 15 mg 15 mg PO QAM 07/03/24 07/03/24 History tablet,extended release 24 hr Past Med/Surg History Problem List Encounter for pre-operative examination Osteoarthritis of left hip Status post right hip replacement (~01/2024) Osteoarthritis of right hip Hx of colonic polyps Medical History Osteoarthritis of left hip Incomplete bladder emptying Hx of cardiac arrhythmia "dropped beats" followed with PCP, had EKG and stress test in 2004, and "nothing to worry about" History of COVID-19 (~2021) x 2 not hospitalized, resolved History of dysphagia denies choking Barretts esophagus GERD (gastroesophageal reflux disease) controlled, stable per pt Hx of gout Visual floaters bilateral eyes, follows with [facility] eye Chronic pain back and right shoulder; denies acute change or worsening Hypercholesteremia Hypertension controlled, stable per pt Surgical History History of esophageal dilatation History of total right hip arthroplasty 01/2024 Hx of esophagogastroduodenoscopy Hx of colonoscopy with polypectomy Hx of wisdom tooth extraction History of hernia surgery (~1988) History of back surgery (~2004) L5-S1 S/P shoulder surgery rt Social History Smoking Status: Never smoker Second Hand Exposure: No; Do You Dip or Chew Tobacco: No; Tobacco Cessation Education Requested by Patient: No Hx Alcohol Use: No Hx Substance Use: No Preferred Language: Romansh Communication Ability: Effective Document Preparer Microfilming Required: No Beliefs That Will Affect Care: None Current Living Situation: Spouse Other Information That Helps Us Care for You: No Feels Safe at Home: Yes Safety Concerns: Feels Safe At This Time Assistive Devices: Cane, Glasses and Walker Review of Systems All systems reviewed & are unremarkable except as noted in HPI & below. Physical Exam On physical exam of the left hip, he has decreased range of motion. He is pain with internal and external rotation. All of his pain is located in the groin.. Constitutional WD/WN, vitals as above Eyes PERRL, conjunctivae normal, anicteric sclerae ENMT external ear and nose normal, oropharynx normal Neck trachea midline, no thyromegaly Respiratory normal respiratory effort Cardiovascular RRR, no murmur, no edema Gastrointestinal (Abdomen) normal bowel sounds, soft, nontender, no hepatosplenomegaly Psychiatric A+Ox3, euthymic affect Results & Data Results & Data Laboratory Results . Diagnostic Findings X-rays of the left hip show advanced osteoarthritis with joint space narrowing, osteophyte formation, and [id number] articulation.. PG Care Time/CCT Total # of Minutes Spent Total Time Spent with Patient: Total time spent is greater than 50% in coordination of care (as documented) at patient's floor/unit and/or counseling patient: Coding Level of Care Code None Diagnoses Osteoarthritis of left hip M16.12
[~2024-07-11 06:57] MED LIST changes: -BUPIVACAINE 0.5 % 5 MG/1 ML PF 10ML VIAL ONE; +ROPIVACAINE 0.5% 5 MG/ML 30 ML VIAL ONE
[2024-07-11] MEDS ORDERED: MIDAZOLAM HCL 1 MG/ML 2ML VIAL ONE (07:30)
[2024-07-11] MEDS: dexAMETHasone**PF** 10 MG/ML VIAL IV SCH (07:37)
[2024-07-11] MEDS: ACETAMINOPHEN 500 MG TAB PO SCH ×2 (07:38→14:26)
[2024-07-11] MEDS: GABAPENTIN 300 MG CAP PO SCH (07:38)
[2024-07-11] MEDS: FAMOTIDINE 20 MG TAB PO SCH (07:38)
[2024-07-11] MEDS: LR 60ML/HR IV SCH (07:38)
[2024-07-11] MEDS ORDERED: ePHEDrine sulfate 50 MG/ML AMP IV PRN (08:07)
[2024-07-11] MEDS ORDERED: ATROPINE SULFATE 0.1 MG/ML 10ML SYR IV PRN (08:07)
[2024-07-11] MEDS ORDERED: ONDANSETRON INJ 2 MG/ML 2 ML VIAL IV PRN ×2 (08:07→11:11)
[2024-07-11] MEDS: LR 500ML BOLUS, THEN 15ML/HR IV SCH (08:08)
--- NOTE | 2024-07-11 08:10 | History & Physical Bridge Note ---
Date of Service July 11, 2024 History & Physical Bridge Note I have examined the patient, reviewed the History & Physical and in the interval since the performance of the History & Physical I have noted the following changes of clinical significance: no changes noted
[2024-07-11] MEDS: TRANEXAMIC ACID 1,000 MG **IV Pre-op IV SCH (08:57)
[2024-07-11] MEDS: ceFAZolin 2000MG 2,000 MG/15 ML SYR IV SCH ×2 (09:08→17:54)
[2024-07-11] MEDS ORDERED: LIDOCAINE 2% 2 ML VIAL/AMP(20MG/ML) INFIL ONE (09:23)
[2024-07-11] MEDS ORDERED: PHENYLEPHRINE HCL 10 MG/ML VIAL ONE ×2 (09:23→10:58)
[2024-07-11] MEDS ORDERED: PROPOFOL IV EMULSION 10 MG/ML 20 ML VIAL IV ONE ×2 (09:23→10:21)
[2024-07-11] MEDS ORDERED: ONDANSETRON INJ 2 MG/ML 2 ML VIAL ONE (09:23)
[2024-07-11] MEDS: ORTHO JOINT ANESTHETIC ONE (09:38)
[2024-07-11] MEDS ORDERED: ePHEDrine sulfate 50 MG/5 ML SYR ONE ×2 (09:41→10:58)
[2024-07-11] MEDS: TRANEXAMIC ACID 1,000 MG **IV Intra-op IV SCH (10:46)
[2024-07-11] MEDS: ROPIV 0.5% 246mg, Ketorolac 30mg, EPINEPHrine 0.5mg in NSS INFIL SCH (10:47)
--- NOTE | 2024-07-11 10:54 | Fluoroscopy Report ---
FL hip LT 1V CLINICAL HISTORY: LEFT ANT HIPleft hip arthroplasty COMPARISON STUDY: Hip radiograph 03/19/2024 FLUOROSCOPY TIME: 14.6 seconds FLUOROSCOPY IMAGES: 1 EXPOSURE DOSE: 2.91 mGy FINDINGS: Satisfactory positioning of the left hip arthroplasty. Expected postoperative soft tissue s welling and deep tissue air. No acute fracture. IMPRESSION: Fluoroscopic assistance as above. ACT 112: Negative or not required by law. Electronically signed by: Cortez Corea M.D. 07/11/2024 10:53 AM
[2024-07-11] MEDS ORDERED: bisacodyL 10 MG SUPP PR PRN (11:11)
[2024-07-11] MEDS ORDERED: METOCLOPRAMIDE HCL INJ 5 MG/ML 2 ML VIAL IV PRN (11:11)
[2024-07-11] MEDS ORDERED: diphenhydrAMINE Capsule 25 MG CAP PO PRN (11:11)
[2024-07-11] MEDS ORDERED: HYDROmorphone INJ 0.5 MG/0.5 ML SYR IV PRN (11:11)
[2024-07-11] MEDS ORDERED: NALOXONE HCL 0.4 MG/1 ML VIAL/CARP IV PRN (11:11)
[2024-07-11] MEDS ORDERED: MAGNESIUM HYDROXIDE SUSP 30 ML UDC PO PRN (11:11)
[2024-07-11] MEDS ORDERED: HYDROmorphone HCL 2 MG TAB PO PRN (11:13)
[2024-07-11] MEDS ORDERED: oxyCODONE HCL IR 5 MG TAB (IMMEDIATE RELEASE) PO PRN (11:13)
[2024-07-11] MEDS: HYDROmorphone INJ 1 MG/ML SYRINGE IV PRN (11:29)
--- NOTE | 2024-07-11 12:12 | XRay Report ---
XR hip 1V LT w pelvis CLINICAL HISTORY: Postoperative evaluation. COMPARISON: Pelvis radiograph March 19, 2024. FINDINGS: Alignment of the total left hip arthroplasty is anatomic. There is no periprosthetic fract ure or unexpected radiopaque foreign body. Right hip arthroplasty is intact. IMPRESSION: Expected findings following total left hip arthroplasty. ACT 112: Negative or not required by law. Electronically signed by: Harris Hannah M.D. 07/11/2024 12:11 PM
--- NOTE | 2024-07-11 13:49 | Anesthesiology Progress Note ---
Date of Service July 11, 2024 Anesthesia Post Procedure Vital Signs Vital Signs: Temp Pulse Pulse Resp BP BP Pulse Ox 07/11/24 13:15 70 14 153/79 H 96 07/11/24 12:45 74 18 139/79 97 07/11/24 12:35 70 23 151/78 H 96 07/11/24 12:25 65 16 151/78 H 95 07/11/24 12:10 70 22 153/79 H 96 07/11/24 11:55 36.4 C L 68 13 149/77 H 96 07/11/24 11:45 66 21 153/79 H 96 07/11/24 11:35 70 20 131/73 93 07/11/24 11:25 71 23 140/79 100 07/11/24 11:17 36.3 C L 75 22 137/72 93 07/11/24 07:24 36.7 C 68 20 146/90 H 97 O2 Del Method O2 Flow Rate 07/11/24 13:15 Nasal Cannula 3 07/11/24 12:45 Nasal Cannula 3 07/11/24 12:35 Nasal Cannula 3 07/11/24 12:25 Nasal Cannula 3 07/11/24 12:10 Nasal Cannula 3 07/11/24 11:55 Nasal Cannula 3 07/11/24 11:45 Nasal Cannula 3 07/11/24 11:35 Nasal Cannula 3 07/11/24 11:25 Nasal Cannula 3 07/11/24 11:17 Oxymask 4 07/11/24 07:24 Room Air Pain Intensity Bilateral Back: Pain Intensity: 5 Left Hip: Pain Intensity: 4 Transfer of Care Handoff Completed per policy Notes Mental Status: alert / awake / arousable Patient Amnestic to Procedure: Yes Nausea / Vomiting: adequately controlled Pain: adequately controlled Airway Patency, RR, SpO2: stable & adequate BP & HR: stable & adequate Hydration State: stable & adequate Neuraxial Anesthesia: was administered and sensory block is resolving Anesthetic Complications: no major complications apparent
[2024-07-11] MEDS: KETOROLAC TROMETHAMINE 15 MG/ML VIAL IV SCH (14:26)
--- NOTE | 2024-07-11 14:51 | Operative Report ---
PG Post Operative Report Pre & Post Diagnosis Operation Date: 07/11/24 09:00 Pre-Op Diagnosis: Osteoarthritis of left hip Post-Op Diagnosis: Osteoarthritis of left hip I identified the patient and participated in the time-out.: Yes Procedure Operation Date: 07/11/24 09:00 Actual Procedures p Left Anterior Total Hip Arthroplasty(Left) - Kiran Portillo DO Surgeon Kiran Portillo DO Res Counselor Amee Buchanan PA-C Estimated Blood Loss 200 Findings Consistent with Post-Op Diagnosis Specimens Left femoral head Description of Procedure Implants used I used a [employer]immer[employer]omet total hip arthroplasty system with a size 11 standard echo cemented stem, a 58 mm G7 cup with a 25mm screw, an E1 polyethylene liner, a 40 mm ceramic head with a +6 neck. Juan Carlos arrived at the hospital for the above procedure. He was seen in the preoperative holding area and the operative extremity was identified and signed. He was given a spinal anesthetic, a preoperative antibiotic, and TXA. He was then taken back to the operating room and laid on the table in the supine position. He was given basic sedation. The operative leg was secured to a Puristst leg positioner. The hip was then prepped and draped in sterile fashion. A timeout was done and the patient and the operative extremity was properly identified. An anterior approach was used. Dissection was taken down through the fascia and the tensor muscle belly was retracted laterally and the rectus was retracted medially. The circumflex vessels were identified and ligated. The capsule was then incised and tagged for later repair. The femoral neck was then cut and the femoral head was removed. The acetabulum was exposed. Time was spent doing a complete circumferential labral release. Sequential reaming of the acetabulum up to a size 57 reamer was done. Final reamings were done under fluoroscopy to ensure appropriate version. A Biomet 58 mm G7 cup was then impacted into place. A single 25 mm screw was placed. The E1 polyethylene liner was then snapped into place. Surrounding soft tissues were then injected with 100 cc of an orthopedic pain control cocktail. The proximal femur was then exposed. Sequential broaching up to a size 13 broach was done. Off that broach a size 40 head with a +6 neck was trialed. The hip was reduced and fluoroscopic images showed anatomic alignment of the implants in acceptable length. The broach was removed. The final size 11 echo cemented stem was then cemented into place. A ceramic 40 mm head with a +6 neck was then impacted onto the stem and the hip was reduced. Final fluoroscopic images showed anatomic alignment of the hip. The capsule was then closed with #1 Vicryl suture. A dilute betadyne lavage was then done for 3 minutes. The joint was then irrigated with normal saline solution. The fascia was closed with #1 PDS suture. Skin was closed with 2-0 Vicryl, honey, and a Silverlon dressing. He was then transferred to a hospital bed and taken to the post anesthesia care unit in stable condition. He tolerated the procedure well. Amee Buchanan PA-C, was present for the entire procedure. He was critical for patient positioning, prepping, draping, retraction exposure, wound closure and application of sterile dressing. I attest to the content of the Intraoperative Record and any orders documented therein. Any exceptions are noted below.
[2024-07-11] MEDS: oxyCODONE HCL IR 5 MG TAB (IMMEDIATE RELEASE) PO PRN (15:51)
[2024-07-11] MEDS: PANTOprazole 40 MG TAB PO SCH (20:42)
[2024-07-11] MEDS: ATORVASTATIN 20 MG TAB PO SCH (20:42)
[2024-07-11] MEDS: TAMSULOSIN HCL 0.4 MG CAP PO SCH (20:43)
[2024-07-11] MEDS: DOCUSATE SODIUM 100 MG CAP PO SCH (20:48)
[2024-07-11] MEDS: SENNA 8.6 MG TAB PO SCH (20:48)
--- NOTE | 2024-07-12 06:53 | Orthopedic Progress Note ---
Date of Service July 12, 2024 Assessment & Plan (1) Status post left hip replacement: Overall he is doing fairly well. He is not having much pain in the left hip. He will be seen by physical therapy today for ambulation and range of motion exercises. He is on Eliquis for DVT prophylaxis. He can be discharged home later today. He will follow-up with orthopedics in 2 weeks. Gus Rangel was seen and examined at bedside this morning. Overall he is doing very well. He is not having much pain in the left hip. He has been up and ambulating to the bathroom. He has no complaints.. Review of Systems All systems reviewed & are unremarkable except as noted in HPI & below. Physical Exam On physical exam of the left hip, the dressing is clean and dry. His leg is out full extension. He has active dorsiflexion and plantarflexion of his left ankle.. Results & Data Results & Data Laboratory Results . Diagnostic Findings Postoperative x-rays of the left hip show the prosthesis to be in anatomic alignment without any evidence of fracture, dislocation, or loosening.. PG Care Time/CCT Total # of Minutes Spent Total Time Spent with Patient: Total time spent is greater than 50% in coordination of care (as documented) at patient's floor/unit and/or counseling patient: Coding Level of Care Code 34113 Post Operative Follow-Up Diagnoses Status post left hip replacement Z96.642
--- NOTE | 2024-07-12 06:54 | Discharge Summary ---
Date of Service July 12, 2024 Admission HPI (Per Admitting) Juan Carlos is a pleasant 68-year-old male who has been ill with chronic increasing left hip and groin pain. X-rays and clinical examination were diagnostic for advanced arthritis of the left hip. After failed conservative treatment, he has elected proceed with a left anterior total of arthroplasty.. Admission Exam (Per Admitting) On physical exam of the left hip, he has decreased range of motion. He is pain with internal and external rotation. All of his pain is located in the groin.. Principal Diagnosis Same as "Discharge Diagnosis" noted below under Discharge Instructions. Discharge Exam On physical exam of the left hip, the dressing is clean and dry. His leg is out full extension. He has active dorsiflexion and plantarflexion of his left ankle.. Discharge Data Procedures Performed Operation Date: 07/11/24 09:00 Actual Procedures p Left Anterior Total Hip Arthroplasty(Left) - Kiran Portillo DO Ordered Studies 07/11/24 09:00 FL hip LT 1V Routine Hospital Course (1) Status post left hip replacement: On July 11, 2024 Juan Carlos arrived at [facility] and underwent a left hip replacement without complication. He had a spinal anesthetic. Postoperatively he was started on Eliquis for DVT prophylaxis and transferred to the general orthopedic floors. His hospital course was uneventful. On postop day #1, his vital signs were stable and his pain was well-controlled. He was able to participate well with physical therapy doing ambulation and range of motion exercises. He was then discharged to home. He will follow-up with orthopedics in 2 weeks. PG Care Time/CCT Total # of Minutes Spent Total Time Spent with Patient: Total time spent is greater than 50% in coordination of care (as documented) at patient's floor/unit and/or counseling patient: Discharge Plan Discharge Items Patient Disposition: Home - Self-Care Reason For Visit: Left Hip Arthritis Discharge Diagnosis: Left hip replacement Activity: Per Instructions section Non-emergency contact: Surgeon Call non-emergency contact if: your wound has increased redness and your wound has increased drainage Follow-up/Referrals: Julien James MD [Primary Care Provider] - Diet: Regular Addtl Attending Provider Instructions: Activity and Therapy Recommendations: * If you are using [facility] then therapy will be provided at your home until they feel you have accomplished all of your goals. * If you are using [facility] then Physical Therapy will be provided until they feel you are ready to start Outpatient Physical Therapy. * If you are not using home therapy then Outpatient Physical Therapy should start about 3-5 days from your day of surgery. Therapy will last about 6-10 weeks * You were shown a series of exercises in the hospital. Do these exercises three times each day including the exercises you were shown in physical therapy. * Get up and walk several times each day.~ For the first four weeks, try not to stand or walk for more than one hour at a time. If you do stand or walk for more than one hour, you will not hurt anything, but your leg will likely swell.~~ * As you feel comfortable, you may change from the walker or crutches to a cane and~then to independent walking. Medications: * Narcotic You will likely be sent home from the hospital with a prescription for the narcotic pain medication that worked best throughout your stay. * Cefadroxil -take the antibiotic twice a day for 10 days to help prevent infection. * Eliquis -take Eliquis 2.5 mg twice a day for 4 weeks to help prevent blood clots.. * Other medications may be prescribed for specific circumstances. If you have any questions, please call the office at . * Resume previous home medications unless otherwise instructed TEDs/Elastic Stockings: The white elastic stockings help limit swelling and prevent blood clots from forming in your legs. The more you wear them, the more they work. Wear them for six weeks. Dressing Care: Leave the Silverlon dressing in place for 7 days. After 7 days you may remove the dressing. If the incision is not draining then you may leave the honey open to air. If there is a little bit of drainage or if the honey are getting stuck on your clothing then cover the incision with a dry dressing. The honey will be removed at your 2 week follow-up appointment. Showering: You may shower with the Silverlon dressing in place. Do not let the shower spray hit the dressing directly. Pat the Silverlon dressing dry. If the dressing becomes wet underneath, then simply remove the dressing. Keep the incision dry until you are 7 days out from the day of surgery. After 7 days you may remove the Silverlon dressing and shower with the honey exposed. Let soapy water run over the honey and pat them dry. Do not scrub or soak the incision. Diet: You may resume your previous diet. Things To Watch For: * Drainage from the incision site that occurs more than one week after your surgery. * Increased redness at the incision site. * Fever above 102 degrees Fahrenheit. * Unusual chest pain or shortness of breath. * Call [facility] at with any of the above problems Follow-Up Visit: Follow-up with Dr. Portillo's PA (Kiran Dacosta) 2-3 weeks after your day of surgery. He will remove your honey and answer any questions. If you have any additional questions or concerns, Dr Portillo is usually in the office at the same time and will be available An appointment was probably scheduled when you signed-up for surgery in the office. If you have any questions call Office Instructions: More detailed instructions as well as Frequently Asked Questions were provided in a folder by our office when you signed-up for surgery. Please review these instructions when you get home. If you have any further questions or concerns, please feel free to call the office at [phone] Pending Studies at Discharge: No Stand-Alone Forms: My [facility] MD Insider, Smoking Cessation Medications and DC Order Prescriptions: New cefadroxil 500 mg capsule 500 mg PO BID 10 Days Qty: 20 0RF oxycodone 5 mg tablet 5 mg PO Q6H PRN (Reason: pain) Qty: 30 0RF cefadroxil 500 mg capsule 500 mg PO BID 10 Days Qty: 20 0RF Eliquis 2.5 mg Tablet 2.5 mg PO BID 28 Days Qty: 56 0RF Continued hydromorphone 2 mg tablet 2 mg PO Q6H PRN (Reason: pain) Qty: 30 0RF multivitamin Tablet 1 tab PO QAM turmeric 400 mg capsule 400 mg PO QAM H2Q CoQ10 200 mg/gram powder 200 mg PO QAM potassium citrate 99 mg capsule 99 mg PO QAM mecobalamin (vitamin B12) 1,000 mcg tablet,chewable 1,000 mcg PO QAM glucosamine sulfate 2KCl [Glucosamine Relief] 1,000 mg tablet 1,000 mg PO QAM Rx Instructions: administer with meals lisinopril 20 mg tablet 20 mg PO QAM allopurinol 100 mg tablet 100 mg PO QAM omeprazole 40 mg capsule,delayed release(DR/EC) 40 mg PO BID tamsulosin [Flomax] 0.4 mg capsule 0.4 mg PO QPM hydrochlorothiazide 25 mg tablet 25 mg PO QAM atenolol 50 mg tablet 50 mg PO QAM Probiotic 20 billion cell Capsule 20,000 mmu cells PO QAM Rx Instructions: administer with a meal oxybutynin chloride 15 mg Tablet Extended Release 24hr 15 mg PO QAM atorvastatin 20 mg Tablet 20 mg PO HS oxycodone 5 mg tablet 5 mg PO Q6H PRN (Reason: Pain, Severe) Qty: 30 0RF Discharge Orders: Discharge Order (Routine); Ordered 07/12/24 Ordered By: Kiran Portillo Admission Data Admit Date/Time: 07/11/24 11:11 Attending Provider: Kiran Portillo Admit Provider: Kiran Portillo Primary Care Provider: Julien James
[2024-07-12 07:39] VITALS: BP 156/71; RESP 16; TEMP 98.4
[2024-07-12] MEDS: OXYBUTYNIN CHLORIDE XL 5 MG TABCR PO SCH (07:56)
[2024-07-12] MEDS: ATENOLOL 50 MG TABLET PO SCH (07:57)
[2024-07-12] MEDS: MULTIVITAMIN TAB PO SCH (07:57)
[2024-07-12] MEDS: ASPIRIN 81 MG ECTAB PO SCH (07:57)
[2024-07-12] MEDS: lisinopril 20 MG TAB PO SCH (07:57)
[2024-07-12] MEDS: hydroCHLOROthiazide 25 MG TAB PO SCH (07:57)
[2024-07-12] MEDS: CYANOCOBALAMIN (B-12) 500 MCG TABLET PO SCH (07:57)
[2024-07-12] MEDS: dexAMETHasone 4 MG TAB PO SCH (07:58)
[2024-07-12] MEDS: allopurinoL 100 MG TAB PO SCH (07:58)
[2024-07-12] MEDS: ADVANCED PROBIOTIC 625 MG CAPSULE PO SCH (07:58)
[2024-07-12] MEDS: GLUCOSAMINE SULFATE 500 MG CAP PO SCH (07:58)
[2024-07-12] MEDS: APIXABAN 2.5 MG TAB PO SCH (07:58)
[2024-07-12] MEDS ORDERED: NON-FORMULARY MEDICATION (Multivitamin tablet) PO SCH (09:00)
[2024-07-12] MEDS ORDERED: NON-FORMULARY MEDICATION (Turmeric 400 mg capsule) PO SCH (09:00)
[2024-07-12] MEDS ORDERED: COENZYME Q10 PO SCH (09:00)
[2024-07-12 09:21] VITALS: PULSE 84; O2SAT 94
== END 2024-07-12 12:10 | disposition home or self-care (01) ==
LOC: ASU 06:57 → PACUINP 06:57 → 3E 13:47